=== PATIENT | female | born 1995 | race Hispanic/Latino ===

== ENCOUNTER 2021-06-11 23:25 | Emergency (ER) | payer MEDICAID ==
[~2021-06-11] VITALS: Ht 162.6 cm; Wt 91.6 kg
[2021-06-12 00:55] LABS: BASOPHILS % (AUTO) 0.3 % (0.0-5.0); EOSINOPHILS % (AUTO) 0.1 % (0.0-8.0); HEMATOCRIT 46.7 % (36-48); LYMPHOCYTES % (AUTO) 8.4 % (21.0-51.0); MEAN CORPUSCULAR HEMOGLOBIN 30.1 pg (27.0-33.0); MEAN CORPUSCULAR HGB CONC 34.3 g/dL (32.0-36.0); MEAN CORPUSCULAR VOLUME 87.8 fL (79-99); MONOCYTES % (AUTO) 5.8 % (3.0-13.0); NEUTROPHILS % (AUTO) 85.1 % (40.0-77.0); PLATELET COUNT (AUTO) 303 K/uL (130-400); RED BLOOD CELL COUNT(AUTO) 5.32 MIL/uL (4.00-5.50); RED CELL DISTRIBUTION WIDTH 12.4 % (11.0-15.5)
[2021-06-12] MEDS ORDERED: ONDANSETRON 4MG INJ IVP ONE (01:00)
[2021-06-12] MEDS ORDERED: LACTATED RINGERS 1000ML 2,000 ML IV ONE (01:00)
[2021-06-12] MEDS ORDERED: FAMOTIDINE 20MG VIAL IV ONE ×2 (01:00→01:20)
[2021-06-12 01:10] LABS: BILIRUBIN,URINE Small (NEGATIVE); COLOR,URINE Dark Yellow (YELLOW); GLUCOSE, URINE (UA) Negative (NEGATIVE); KETONES,URINE >=80 mg/dL (NEGATIVE); LEUKOCYTE ESTERASE ,URINE Trace (NEGATIVE); NITRATE,URINE Negative (NEGATIVE); OCCULT BLOOD,URINE Negative (NEGATIVE); PROTEIN,URINE POS 2+ mg/dL (NEGATIVE)
[2021-06-12 01:11] LABS: APPEARANCE,URINE SLIGHTLY CLOUDY (CLEAR)
[2021-06-12 01:20] LABS: BACTERIA,URINE Few /HPF (None Seen); MUCUS,URINE Few LPF (None Seen); RBC,URINE 26-50 /HPF (0-1)
[2021-06-12] MEDS ORDERED: ONDANSETRON 4MG INJ ONE (01:20)
[2021-06-12 01:24] LABS: PLATELET MORPHOLOGY PLT CLUMPS PRESENT
[2021-06-12 01:41] VITALS: BP 144/79
[2021-06-12] MEDS ORDERED: DICYCLOMINE 20MG (10MG/ML) AMP IM STA (01:50)
[2021-06-12] MEDS ORDERED: ZOSYN 3.375GM+NS 50ML 50 ML IV SCH (02:00)
[2021-06-12] MEDS ORDERED: LACTATED RINGERS 1000ML 1,000 ML IV ONE (02:00)
[2021-06-12 02:07] LABS: CREATININE 0.8 mg/dL (0.5-1.5); POTASSIUM 3.9 mmol/L (3.5-5.1)
[2021-06-12 02:16] LABS: BILIRUBIN,TOTAL 0.7 mg/dL (0.2-1.0); MAGNESIUM 1.9 mg/dL (1.80-2.40)
[2021-06-12] MEDS ORDERED: IOHEXOL 350 MG/ML 100ML INFUS..BTL IV ONE (02:23)
[2021-06-12] MEDS ORDERED: DIATR MEGLU/DIATRIZOATE SODIUM 30 ML BOTTLE ONE (02:23)
[2021-06-12] MEDS ORDERED: DICYCLOMINE 20MG (10MG/ML) AMP IM ONE (02:55)
[2021-06-12] MEDS ORDERED: 0.9%NACL 50ML 50 ML IV ONE (02:56)
== END 2021-06-12 06:59 | disposition home or self-care (01) ==
LOC: EDH 23:25
DX: K80.70 Calculus of gallbladder and bile duct without cholecystitis without obstruction (principal); E86.0 Dehydration; E66.9 Obesity, unspecified; Z68.30 Body mass index [BMI] 30.0-30.9, adult; Z79.899 Other long term (current) drug therapy
CPT/HCPCS: 36415; 74177; 76705; 80053; 81001; 82150; 83690; 83735; 84702; 85025; 86140; 96361; 96365; 96366; 96372; 96375; 99285; J0500; J2405; J2543; Q9963; Q9967; S0028; J3490